=== PATIENT | female | born 1960 | race African-American/Black ===

== ENCOUNTER 2018-05-23 01:54 | Emergency (ER) | payer MEDICAID, OTHER ==
[~2018-05-23] VITALS: Ht 149.9 cm; Wt 50.2 kg
[~2018-05-23 01:54] MED LIST: ASPI-556 PO; BENZ1TAB10 PO; FLUO-191 PO; METF500T6 PO; NAPR-58 PO; RISP3 PO; SIMV20TA6 PO; TRAZ150 PO
[2018-05-23] MEDS ORDERED: SODIUM CHLORIDE 0.9% 500 ML IV ONE (03:15)
[2018-05-23 03:18] LABS: BASOPHILS % (AUTO) 1.5 % (0.0-2.0); EOSINOPHILS % (AUTO) 4.8 % (1.0-6.0); HEMATOCRIT 31.5 % (36-46); HEMOGLOBIN 10.7 g/dL (12.0-16.0); LYMPHOCYTES # (AUTO) 2.6 K/uL (1.0-4.8); LYMPHOCYTES % (AUTO) 34.8 % (22.0-44.0); MEAN CORPUSCULAR HEMOGLOBIN 29.9 pg (26.0-34.0); MEAN CORPUSCULAR VOLUME 88 fL (80-100); MONOCYTES # (AUTO) 0.6 K/uL (0.1-1.0); MONOCYTES % (AUTO) 8.4 % (2.0-9.0); NEUTROPHILS # (AUTO) 3.8 K/uL (1.8-7.7); NEUTROPHILS % (AUTO) 50.5 % (40.0-70.0); PLATELET COUNT (AUTO) 278 K/uL (150-450); RED BLOOD CELL COUNT(AUTO) 3.57 MIL/uL (4.00-5.20); RED CELL DISTRIBUTION WIDTH 14.6 % (11.5-14.5)
[2018-05-23 03:26] LABS: ANION GAP 7 mmol/L (8-16); CALCIUM, TOTAL 7.7 mg/dL (8.8-10.5); CARBON DIOXIDE 29 mmol/L (22-29); CHLORIDE 103 mmol/L (98-107); CREATININE 0.69 mg/dL (0.60-1.30); GLOMERULAR FILTR. RATE CALC > 60 mL/min (>60); GLUCOSE,RANDOM 74 mg/dL (70-110); POTASSIUM 3.6 mmol/L (3.5-5.1); SODIUM SERUM 139 mmol/L (136-145); UREA NITROGEN, BLOOD 7 mg/dL (7-18)
[2018-05-23 03:28] LABS: PROTHROMBIN TIME 10.5 SEC (9.4-11.6)
[2018-05-23 03:32] LABS: ALANINE AMINOTRANSFERASE 20 U/L (12-78); ALBUMIN 2.8 g/dL (3.4-5.0); ALKALINE PHOSPHATASE 117 U/L (46-116); ASPARTATE AMINOTRANSFERASE 18 U/L (15-37); BILIRUBIN,TOTAL 0.3 mg/dL (0.1-1.0); TOTAL PROTEIN, SERUM 6.4 g/dL (6.4-8.2)
[2018-05-23 03:34] LABS: AMMONIA 22 umol/L (11-32)
[2018-05-23 03:41] LABS: TROPONIN I < 0.02 ng/mL (0.00-0.05)
[2018-05-23 04:13] LABS: APPEARANCE,URINE CLEAR (CLEAR); BILIRUBIN,URINE NEGATIVE (NEGATIVE); GLUCOSE, URINE (UA) NEGATIVE (NEGATIVE); KETONES,URINE NEGATIVE (NEGATIVE); LEUKOCYTE ESTERASE ,URINE NEGATIVE (NEGATIVE); NITRATE,URINE NEGATIVE (NEGATIVE); OCCULT BLOOD,URINE NEGATIVE (NEGATIVE); PROTEIN,URINE NEGATIVE (NEGATIVE)
[2018-05-23 04:18] LABS: AMPHET/METH SCREEN,URINE NEGATIVE (NEGATIVE); BARBITURATE SCREEN, URINE NEGATIVE (NEGATIVE); BENZODIAZEPINES SCREEN,URINE NEGATIVE (NEGATIVE); CANNABINOID SCREEN,URINE NEGATIVE (NEGATIVE); COCAINE SCREEN,URINE NEGATIVE (NEGATIVE); METHADONE SCREEN, URINE NEGATIVE (NEGATIVE); OPIATE SCREEN,URINE POSITIVE (NEGATIVE)
[2018-05-23 04:27] LABS: PHENCYCLIDINE SCREEN,URINE NEGATIVE (NEGATIVE)
[2018-05-23 05:55] VITALS: BP 119/62
== END 2018-05-23 06:42 | disposition home or self-care (01) ==
LOC: EMS 01:56
DX: S00.93XA Contusion of unspecified part of head, initial encounter (principal); T50.905A Adverse effect of unspecified drugs, medicaments and biological substances, initial encounter; R55 Syncope and collapse; I10 Essential (primary) hypertension; E78.00 Pure hypercholesterolemia, unspecified; F32.9 Major depressive disorder, single episode, unspecified; M19.90 Unspecified osteoarthritis, unspecified site; R41.0 Disorientation, unspecified; F20.9 Schizophrenia, unspecified; F17.210 Nicotine dependence, cigarettes, uncomplicated; Z88.0 Allergy status to penicillin; Z79.899 Other long term (current) drug therapy; Z90.49 Acquired absence of other specified parts of digestive tract; Z90.710 Acquired absence of both cervix and uterus; W18.2XXA Fall in (into) shower or empty bathtub, initial encounter; Y93.E1 Activity, personal bathing and showering; Y92.091 Bathroom in other non-institutional residence as the place of occurrence of the external cause; Y99.8 Other external cause status
CPT/HCPCS: 36415; 70450; 71045; 72125; 80053; 80307; 81003; 82140; 84484; 85025; 85610; 93005; 96360; 99285; J7040

== ENCOUNTER 2018-08-15 17:08 | Emergency (ER) | payer MEDICAID, OTHER ==
[~2018-08-15] VITALS: Ht 149.9 cm; Wt 45.9 kg
[~2018-08-15 17:08] MED LIST changes: -BENZ1TAB10 PO; +DSS100 PO; +METF-960 PO; -METF500T6 PO; +OMEP20CA10 PO; -RISP3 PO; +RISP4TAB63 PO; -TRAZ150 PO
[2018-08-15] MEDS ORDERED: ARIP2 PO (17:14)
[2018-08-15 17:24] LABS: GLUCOSE,POINT OF CARE 98 MG/DL (70-110)
[2018-08-15] MEDS ORDERED: ACETAMINOPHEN 325 MG TABLET PO ONE (20:30)
[2018-08-15] MEDS ORDERED: ACETAMINOPHEN/CODEINE 300-30 MG TABLET PO ONE (20:30)
[2018-08-15] MEDS ORDERED: MUPIROCIN CALCIUM 2% 22 GM OINTMENT TP ONE (20:30)
[2018-08-15 21:33] VITALS: BP 111/67
== END 2018-08-15 21:44 | disposition home or self-care (01) ==
LOC: EMS 17:09
DX: L03.032 Cellulitis of left toe (principal); L60.2 Onychogryphosis; I10 Essential (primary) hypertension; E11.9 Type 2 diabetes mellitus without complications; E78.00 Pure hypercholesterolemia, unspecified; K21.9 Gastro-esophageal reflux disease without esophagitis; F31.9 Bipolar disorder, unspecified; F20.9 Schizophrenia, unspecified; F17.210 Nicotine dependence, cigarettes, uncomplicated; Z88.0 Allergy status to penicillin
CPT/HCPCS: 99284; 99406

== ENCOUNTER 2018-08-21 21:06 | Emergency (ER) | payer OTHER ==
[~2018-08-21] VITALS: Ht 149.9 cm; Wt 46.0 kg
[~2018-08-21 21:06] MED LIST changes: +ARIP2 PO; -DSS100 PO; -NAPR-58 PO; -OMEP20CA10 PO
[2018-08-21 21:50] LABS: BASOPHILS % (AUTO) 0.5 % (0.0-2.0); HEMATOCRIT 39.1 % (36-46); HEMOGLOBIN 12.9 g/dL (12.0-16.0); LYMPHOCYTES # (AUTO) 1.6 K/uL (1.0-4.8); LYMPHOCYTES % (AUTO) 13.7 % (22.0-44.0); MEAN CORPUSCULAR HEMOGLOBIN 29.3 pg (26.0-34.0); MEAN CORPUSCULAR VOLUME 89 fL (80-100); MONOCYTES # (AUTO) 0.5 K/uL (0.1-1.0); MONOCYTES % (AUTO) 4.1 % (2.0-9.0); NEUTROPHILS # (AUTO) 9.6 K/uL (1.8-7.7); NEUTROPHILS % (AUTO) 80.7 % (40.0-70.0); RED CELL DISTRIBUTION WIDTH 15.6 % (11.5-14.5)
[2018-08-21 22:07] LABS: ANION GAP 8 mmol/L (8-16); CALCIUM, TOTAL 9.3 mg/dL (8.8-10.5); CARBON DIOXIDE 28 mmol/L (22-29); CHLORIDE 99 mmol/L (98-107); CREATININE 0.78 mg/dL (0.60-1.30); GLOMERULAR FILTR. RATE CALC > 60 mL/min (>60); GLUCOSE,RANDOM 94 mg/dL (70-110); POTASSIUM 4.1 mmol/L (3.5-5.1); SODIUM SERUM 135 mmol/L (136-145); UREA NITROGEN, BLOOD 10 mg/dL (7-18)
[2018-08-21 22:11] LABS: ALANINE AMINOTRANSFERASE 28 U/L (12-78); ALBUMIN 3.8 g/dL (3.4-5.0); ALKALINE PHOSPHATASE 124 U/L (46-116); ASPARTATE AMINOTRANSFERASE 22 U/L (15-37); BILIRUBIN,TOTAL 0.4 mg/dL (0.1-1.0); LIPASE 82 U/L (73-393); TOTAL PROTEIN, SERUM 8.2 g/dL (6.4-8.2)
[2018-08-21 22:12] LABS: PLATELET COUNT (AUTO) 319 K/uL (150-450)
[2018-08-22] MEDS ORDERED: ONDANSETRON HCL 4 MG TABLET PO ONE (01:30)
[2018-08-22] MEDS ORDERED: KETOROLAC TROMETHAMINE 30 MG/ML VIAL IM ONE (02:15)
[2018-08-22] MEDS ORDERED: CefTRIAXone SODIUM 1 GM/VIAL IM ONE (04:15)
[2018-08-22] MEDS ORDERED: LIDOCAINE/PF 1% 2 ML VIAL IM ONE (04:15)
[2018-08-22 06:43] VITALS: BP 121/73
[2018-08-22 11:31] LABS: GLUCOSE,POINT OF CARE 83 MG/DL (70-110)
== END 2018-08-22 06:56 | disposition home or self-care (01) ==
LOC: EMS 21:08
DX: N39.0 Urinary tract infection, site not specified (principal); R11.2 Nausea with vomiting, unspecified; F32.9 Major depressive disorder, single episode, unspecified; E11.9 Type 2 diabetes mellitus without complications; E78.00 Pure hypercholesterolemia, unspecified; I10 Essential (primary) hypertension; F20.9 Schizophrenia, unspecified; F17.210 Nicotine dependence, cigarettes, uncomplicated; Z90.49 Acquired absence of other specified parts of digestive tract; Z90.710 Acquired absence of both cervix and uterus; Z79.84 Long term (current) use of oral hypoglycemic drugs; Z79.899 Other long term (current) drug therapy
CPT/HCPCS: 80053; 82962; 83690; 84484; 85025; 93005; 96372; 99285; J0696; J1885; J3490; Q0162; 51701; 99284

== ENCOUNTER 2018-09-10 23:26 | Emergency (ER) | payer OTHER ==
[~2018-09-10] VITALS: Ht 147.3 cm; Wt 49.1 kg
[2018-09-10 23:44] LABS: GLUCOSE,POINT OF CARE 98 MG/DL (70-110)
[2018-09-10] MEDS ORDERED: OMEP20 PO (23:44)
[2018-09-10] MEDS ORDERED: HYDR-4031 PO (23:44)
[2018-09-10] MEDS ORDERED: LORA10TA7 PO (23:44)
[2018-09-10 23:58] VITALS: BP 126/73
[2018-09-11] MEDS ORDERED: KETOROLAC TROMETHAMINE 60 MG/2 ML VIAL IM ONE (00:15)
== END 2018-09-11 00:33 | disposition home or self-care (01) ==
LOC: EMS 23:26
DX: S80.01XA Contusion of right knee, initial encounter (principal); F25.9 Schizoaffective disorder, unspecified; F32.9 Major depressive disorder, single episode, unspecified; F17.210 Nicotine dependence, cigarettes, uncomplicated; M19.90 Unspecified osteoarthritis, unspecified site; F31.9 Bipolar disorder, unspecified; E11.9 Type 2 diabetes mellitus without complications; K21.9 Gastro-esophageal reflux disease without esophagitis; E78.00 Pure hypercholesterolemia, unspecified; I10 Essential (primary) hypertension; G89.29 Other chronic pain; Z96.651 Presence of right artificial knee joint; Z90.49 Acquired absence of other specified parts of digestive tract; Z90.710 Acquired absence of both cervix and uterus; Z88.0 Allergy status to penicillin; Z79.82 Long term (current) use of aspirin; Z79.84 Long term (current) use of oral hypoglycemic drugs; W18.09XA Striking against other object with subsequent fall, initial encounter; Y93.89 Activity, other specified; Y92.89 Other specified places as the place of occurrence of the external cause; Y99.8 Other external cause status
CPT/HCPCS: 29505; 82962; 96372; 99283; 99406; J1885; 29530

== ENCOUNTER 2018-10-02 07:05 | Emergency (ER) | payer OTHER ==
[~2018-10-02] VITALS: Ht 152.4 cm; Wt 48.2 kg
[~2018-10-02 07:05] MED LIST changes: -ARIP2 PO; +HYDR-4031 PO; +LORA10TA7 PO; +OMEP20 PO; -RISP4TAB63 PO
[2018-10-02 07:17] LABS: GLUCOSE,POINT OF CARE 143 MG/DL (70-110)
[2018-10-02 08:42] LABS: BASOPHILS % (AUTO) 0.6 % (0.0-2.0); EOSINOPHILS % (AUTO) 2.5 % (1.0-6.0); HEMATOCRIT 32.5 % (36-46); LYMPHOCYTES # (AUTO) 2.5 K/uL (1.0-4.8); LYMPHOCYTES % (AUTO) 21.9 % (22.0-44.0); MEAN CORPUSCULAR HEMOGLOBIN 30.8 pg (26.0-34.0); MEAN CORPUSCULAR HGB CONC 33.9 G/dL (31.0-37.0); MEAN CORPUSCULAR VOLUME 91 fL (80-100); MONOCYTES # (AUTO) 1.1 K/uL (0.1-1.0); MONOCYTES % (AUTO) 9.3 % (2.0-9.0); NEUTROPHILS # (AUTO) 7.6 K/uL (1.8-7.7); NEUTROPHILS % (AUTO) 65.7 % (40.0-70.0); PLATELET COUNT (AUTO) 442 K/uL (150-450); RED BLOOD CELL COUNT(AUTO) 3.56 MIL/uL (4.00-5.20); RED CELL DISTRIBUTION WIDTH 15.2 % (11.5-14.5)
[2018-10-02 08:52] LABS: ANION GAP 5 mmol/L (8-16); CALCIUM, TOTAL 8.5 mg/dL (8.8-10.5); CARBON DIOXIDE 29 mmol/L (22-29); CHLORIDE 98 mmol/L (98-107); CREATININE 0.52 mg/dL (0.60-1.30); GLOMERULAR FILTR. RATE CALC > 60 mL/min (>60); GLUCOSE,RANDOM 88 mg/dL (70-110); POTASSIUM 4.8 mmol/L (3.5-5.1); SODIUM SERUM 132 mmol/L (136-145); UREA NITROGEN, BLOOD 3 mg/dL (7-18)
[2018-10-02 08:58] LABS: ALANINE AMINOTRANSFERASE 51 U/L (12-78); ALBUMIN 2.9 g/dL (3.4-5.0); ALKALINE PHOSPHATASE 134 U/L (46-116); ASPARTATE AMINOTRANSFERASE 27 U/L (15-37); BILIRUBIN,TOTAL 0.3 mg/dL (0.1-1.0); TOTAL PROTEIN, SERUM 7.4 g/dL (6.4-8.2)
[2018-10-02] MEDS ORDERED: DOXYCYCLINE HYCLATE 100 MG/VIAL IPL ONE (09:00)
[2018-10-02 09:04] LABS: LACTIC ACID 2.7 mmol/L (0.4-2.0)
[2018-10-02] MEDS ORDERED: CeFAZolin 1 GM/DEXTROSE 50 ML IV ONE (09:30)
[2018-10-02] MEDS ORDERED: SODIUM CHLORIDE 0.9% 1,000 ML IV ONE ×2 (09:30)
[2018-10-02] MEDS ORDERED: HYDROmorphone 2 MG/ML SYRINGE IVP ONE (10:15)
[2018-10-02 10:53] VITALS: BP 121/71
== END 2018-10-02 12:58 | disposition home or self-care (01) ==
LOC: EMS 07:06
DX: M25.561 Pain in right knee (principal); M19.90 Unspecified osteoarthritis, unspecified site; F31.9 Bipolar disorder, unspecified; E11.9 Type 2 diabetes mellitus without complications; K21.9 Gastro-esophageal reflux disease without esophagitis; E78.00 Pure hypercholesterolemia, unspecified; I10 Essential (primary) hypertension; F20.9 Schizophrenia, unspecified; G89.29 Other chronic pain; F17.210 Nicotine dependence, cigarettes, uncomplicated; Z90.49 Acquired absence of other specified parts of digestive tract; Z90.710 Acquired absence of both cervix and uterus; Z96.651 Presence of right artificial knee joint; Z88.0 Allergy status to penicillin; Z79.84 Long term (current) use of oral hypoglycemic drugs; Z79.82 Long term (current) use of aspirin
CPT/HCPCS: 36415; 73562; 80053; 82962; 83605; 85025; 87040; 93005; 96365; 96375; 99285; J0690; J1170; J7030; J3490

== ENCOUNTER 2024-03-23 18:10 | Emergency (ER) | payer MEDICARE, MEDICAID ==
[~2024-03-23] VITALS: Ht 149.9 cm; Wt 63.2 kg
[~2024-03-23 18:10] MED LIST changes: +DICL100G60 TP; +FLUO-177 PO; -FLUO-191 PO; -HYDR-4031 PO; +METF-1211 PO; -METF-960 PO; +QUET25TA PO; +SIMV-261 PO; -SIMV20TA6 PO
[2024-03-23 18:17] VITALS: BP 112/57; PULSE 84; RESP 18; TEMP 98.5
[2024-03-23] MEDS ORDERED: KETOROLAC TROMETHAMINE 30 MG/ML VIAL IM ONE (20:00)
[2024-03-23] MEDS ORDERED: LIDOCAINE 5% TRANSDERMAL PATCH TD ONE (20:00)
== END 2024-03-23 20:57 | disposition left against medical advice (07) ==
LOC: EMS 18:11
DX: M54.9 Dorsalgia, unspecified (principal); Z53.21 Procedure and treatment not carried out due to patient leaving prior to being seen by health care provider
CPT/HCPCS: 82962

== ENCOUNTER 2024-03-25 17:46 | Emergency (ER) | payer MEDICARE, MEDICAID ==
[~2024-03-25] VITALS: Ht 152.4 cm; Wt 68.2 kg
[2024-03-25 17:56] VITALS: BP 116/59; PULSE 79; RESP 16; TEMP 98.6
[2024-03-25] MEDS ORDERED: TRAZ-252 PO (17:56)
== END 2024-03-25 19:09 | disposition left against medical advice (07) ==
LOC: EMS 17:46
DX: M54.50 Low back pain, unspecified (principal); M54.6 Pain in thoracic spine; Z53.21 Procedure and treatment not carried out due to patient leaving prior to being seen by health care provider